=== PATIENT | male | born 1995 | race Caucasian/White ===

== ENCOUNTER 2024-05-30 14:42 | Emergency (ER) | payer OTHER, SELFPAY ==
[2024-05-30 14:48] VITALS: BP 144/88; PULSE 80; RESP 18; TEMP 37; O2SAT 97; BMI 38.0
--- NOTE | 2024-05-30 14:53 | DI.RAD.S_ITS ---
PROCEDURE: XR RIBS RT MIN 3V W CXR 1V INDICATIONS: pain TECHNIQUE: 2 views of the ribs were acquired, along with a single view chest. COMPARISON: None. FINDINGS: Surgical changes and devices: None. Bones and chest wall: No fractures or dislocations. No suspicious bony lesions. Overlying soft tissues appear unremarkable. Lungs and pleura: No pleural effusions or pneumothorax. Lungs appear clear. Mediastinum: Mediastinal contours appear normal. Heart size is normal. IMPRESSION: No displaced rib fracture or pneumothorax. Dictated by: Arya Millan M.D. on 05/30/2024 at 15:14 Approved by: Arya Millan M.D. on 05/30/2024 at 15:15
[2024-05-30 15:45] VITALS: BP 130/82; PULSE 68; RESP 18; TEMP 36.8; O2SAT 97
--- NOTE | 2024-05-30 15:59 | ED_ITS ---
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 No fevers or chills or shortness of breath. He has been using his meloxicam and his Robaxin for his back symptoms, seems like his pain is controlled, however he is worried about underlying problem with his lung. No fevers or chills. No shortness of breath. No recent coughing. No skin rash to trunk. Related Data Allergies Allergy/AdvReac Type Severity Reaction Status Date / Time No Known Drug Allergies Allergy Verified 05/30/24 14:48 Patient History Social History Smoking Status: Current every day smoker Smoking Status: Current every day smoker tobacco type: vaping Alcohol type: beer Exam Narrative Exam Narrative: GENERAL: Well-developed patient, in mild distress. HEAD: Atraumatic. Normocephalic. EYES: Pupils equal round and reactive. Extraocular motions intact. No scleral icterus. No injection or drainage. ENT: Nose without bleeding, purulent drainage. Throat without erythema, tonsillar hypertrophy or exudate. Airway patent. NECK: Trachea midline. Non tender CARDIOVASCULAR: Regular rate and rhythm without murmurs, gallops, or rubs. RESPIRATORY: Clear to auscultation. Breath sounds equal bilaterally. No wheezes, rales, or rhonchi. Right anterior chest discomfort, no skin changes, no vesicles or rash. GASTROINTESTINAL: Abdomen soft, non-tender, nondistended. EXTREMITIES: No edema or joint tenderness. BACK: Nontender without deformity or crepitance. No flank tenderness. NEURO: AOx3. Motor functions grossly nonfocal SKIN: No rash or erythema of visible areas Initial Vital Signs Initial Vital Signs: Vital Signs Temperature 98.6 F 05/30/24 14:48 Pulse Rate 80 05/30/24 14:48 Respiratory Rate 18 05/30/24 14:48 Blood Pressure 144/88 H 05/30/24 14:48 Pulse Oximetry 97 05/30/24 14:48 Oxygen Delivery Method Room Air 05/30/24 14:48 Course Orders Ordered: ED Orders 05/30/24 14:53 XR ribs RT min 3V w CXR1V Stat Vital Signs Vital signs: Vital Signs - 8 hr 05/30/24 14:48 05/30/24 15:45 Temperature 98.6 F 98.2 F Pulse Rate 80 68 Respiratory Rate 18 18 Blood Pressure 144/88 H 130/82 Pulse Oximetry 97 97 Oxygen Delivery Method Room Air Room Air MDM - Chest Pain Imaging Data Right rib series with chest x-ray: Radiologist's Impression: Close Ribs X-Ray (Signed) Arya Millan - 05/30/24 Launch?[address] [address] XRay Report Signed Patient: Phu Rosado MR#: [id number] : 1995 Acct:[id number] Age/Sex: 28 / M Date of Service: 05/30/24 Loc: ED Accession Number: [id number] Procedure: XR ribs RT min 3V w CXR1V Ordering Provider: Juan Spivey MD PROCEDURE: XR RIBS RT MIN 3V W CXR 1V INDICATIONS: pain TECHNIQUE: 2 views of the ribs were acquired, along with a single view chest. COMPARISON: None. FINDINGS: Surgical changes and devices: None. Bones and chest wall: No fractures or dislocations. No suspicious bony lesions. Overlying soft tissues appear unremarkable. Lungs and pleura: No pleural effusions or pneumothorax. Lungs appear clear. Mediastinum: Mediastinal contours appear normal. Heart size is normal. IMPRESSION: No displaced rib fracture or pneumothorax. Dictated by: Arya Millan M.D. on 05/30/2024 at 15:14 Approved by: Arya Millan M.D. on 05/30/2024 at 15:15 [facility] Narrative Medical decision making narrative: 28-year-old with right anterior chest discomfort, tenderness on examination, no respiratory distress. No fever, sirs screen negative. X-ray right rib series with chest x-ray was unremarkable, see radiology report. 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 You will continue modified work plan, continue his chronic medications. He was not requesting any additional medications. He declined inhaler/spacer when offered. Copy of his x-ray report provided. Advised to follow up with his regular providers through his [employer]. Return precautions discussed. Discharge Plan Departure Patient Disposition: Home Clinical Impression: Chest wall pain Activity Restrictions/Additional Instructions: Right anterior chest wall discomfort without any obvious injury. 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 X-ray series right ribs with chest x-ray performed, no acute changes. There were no rib fractures obvious, no underlying pneumonia or collapsed lung or acute changes identified. On examination you do have some chest wall discomfort, you seemed to have some chest wall etiology of your discomfort. Does not seem likely for cardiac issue, nor pneumonia, no obvious reason for any antibiotics. We discussed additional pain medications, you seemed to be content with your current regimen of meloxicam and methocarbamol muscle relaxant regimen. Keep taking those medications. Deep breathe. Recheck lungs with your regular doctor early next week. Return earlier to this/nearest emergency department for any change worsening symptoms or any concerns prior. Referrals: ProviderNathaniel [Primary Care Provider] - Stand Alone Forms: Patient Portal/API/Survey
[2024-05-30 16:51] VITALS: BP 131/74; PULSE 70; RESP 18; O2SAT 96
== END 2024-05-30 16:52 | disposition home or self-care (01) ==
PROVIDERS: Emergency Provider Emergency Medicine
DX: R07.89 Other chest pain (principal)
CPT/HCPCS: 71101; 99281; 99283